=== PATIENT | male | born 2000 | race Caucasian/White ===

== ENCOUNTER 2020-08-05 20:29 | Emergency (ER) | payer OTHER ==
[~2020-08-05] VITALS: Ht 170.1 cm; Wt 81.6 kg
[~2020-08-05 20:29] MED LIST: AMOXICILLIN,AM250 MG PO; AUGMENTIN 2040 MG/ML PO; KEFLEX500 MG PO; MIRALAX POWDER17 G1 PO; MOTRIN CHI100 MG/5 M PO; SEPTRA DS 800 M1 TAB PO; VALIUM2 MG PO; ZOFRAN ODT4 MG SL
== END 2020-08-05 21:57 | disposition home or self-care (01) ==
LOC: ED 20:29
DX: S09.90XA Unspecified injury of head, initial encounter (principal); F07.81 Postconcussional syndrome; W20.8XXA Other cause of strike by thrown, projected or falling object, initial encounter; Y93.89 Activity, other specified; Y92.89 Other specified places as the place of occurrence of the external cause; Y99.8 Other external cause status

== ENCOUNTER → 2023-01-28 | Outpatient (CLI) | payer OTHER | END | disposition home or self-care (01) | LOC: RAD 16:03 | PROVIDERS: ATTEND Family Medicine | DX: M54.50 Low back pain, unspecified (principal) ==

== ENCOUNTER 2025-03-01 19:35 | Emergency (ER) | payer SELFPAY ==
[~2025-03-01] VITALS: Ht 175.3 cm; Wt 108.9 kg
[2025-03-01] MEDS ORDERED: MIXED AMPHETAMI10 MG PO (19:50)
[2025-03-01] MEDS ORDERED: PRISTIQ50 MG PO (19:52)
[2025-03-01] MEDS ORDERED: LORazepam 1 MG TAB PO ONE (20:20)
== END 2025-03-01 23:36 | disposition home or self-care (01) ==
LOC: ED 19:35
DX: F41.9 Anxiety disorder, unspecified (principal); Z79.899 Other long term (current) drug therapy